=== PATIENT | female | born 1985 | race Hispanic/Latino ===

== ENCOUNTER 2019-09-12 15:52 | Outpatient (CLI) | payer BC ==
--- NOTE | 2019-09-12 16:11 | RAD ---
EXAM: Chest PA and lateral: HISTORY: Dyspnea COMPARISON: None FINDINGS: Heart size:Within normal limits. Lungs:Clear of acute process. No confluent pneumonia, overt edema, pleural effusion, or other acute process. IMPRESSION: No significant acute intrathoracic disease.
--- NOTE | 2019-09-12 16:12 | RAD ---
XR Ankle Rt 3 View STANDARD History: Pain in ankle Comparison: None. Findings: Possible osteochondral defect of the lateral tibial dome. No acute fracture or malalignment . Mild bimalleolar soft tissue swelling. Impression: Concern for a lateral talar dome osteochondral defect. MRI recommended for further evalua tion.
== END 2019-09-12 15:53 | disposition home or self-care (01) ==
LOC: BICRAD 15:52
PROVIDERS: ATTEND Internal Medicine
DX: M25.571 Pain in right ankle and joints of right foot (principal); R06.00 Dyspnea, unspecified
CPT/HCPCS: 36415; 71046; 80053; 80061; 82728; 83540; 83550; 84439; 84443; 85025

== ENCOUNTER 2024-07-26 14:08 | Outpatient (CLI) | payer BC | END 2024-07-26 14:09 | disposition home or self-care (01) | LOC: BICMAMMO 14:08 | PROVIDERS: ATTEND Internal Medicine | DX: N63.11 Unspecified lump in the right breast, upper outer quadrant (principal) | CPT/HCPCS: 77066; G0279 ==